=== PATIENT | male | born 1960 | race Caucasian/White ===

== ENCOUNTER 2016-06-18 14:01 | Emergency (ER) | payer SELFPAY ==
--- NOTE | 2016-06-18 15:06 | EDM.PDOC ---
ED HPI Trauma - General Chief Complaint: Lower Extremity Injury/Pain Stated Complaint: LT SIDE HURTS Time Seen by Provider: 06/18/16 14:20 - History of Present Illness INITIAL COMMENTS - FREE TEXT/NARRATIVE: HISTORY AND PHYSICAL: History of present illness: Patient 56-year-old male presents status post recent injury which was driving a tractor and fell on left side he sustained injuries to his left elbow left ribs and left knee these are associated with some minor abrasions he denies any head or neck pain or trauma the measurements of breath abdominal pain or trauma or other concern Review of systems: As per history of present illness and below otherwise all systems reviewed and negative. Past medical history: As per history of present illness and as reviewed below otherwise noncontributory. Surgical history: As per history of present illness and as reviewed below otherwise noncontributory. Social history: No reported history of drug or alcohol abuse. Family history: As per history of present illness and as reviewed below otherwise noncontributory. Physical exam: HEENT: Atraumatic, normocephalic, pupils reactive, negative for conjunctival pallor or scleral icterus, mucous membranes moist, throat clear, neck supple, nontender, trachea midline. Lungs: Clear to auscultation, breath sounds equal bilaterally, chest mild tenderness to palpation in the anterior axillary line at the left ribs no crepitation or point tenderness Heart: S1S2, regular, negative for clicks, rubs, or JVD. Abdomen: Soft, nondistended, nontender. Negative for masses or hepatosplenomegaly. Negative for costovertebral tenderness. Pelvis: Stable nontender. Genitourinary: Deferred. Rectal: Deferred. Extremities: Patient noted to have abrasion to his left elbow and left knee he is also known to small hematoma both in the region of the olecranon and left knee there is no crepitus point tenderness CMS neurovascular unremarkable.. Neuro: Awake, alert, oriented. Cranial nerves II through XII unremarkable. Cerebellum unremarkable. Motor and sensory unremarkable throughout. Exam nonfocal. Diagnostics: X-ray chest x-ray left knee x-ray left elbow Therapeutics: To be determined Impression: #1 observation status post accident #1 multiple abrasions/contusions Definitive disposition and diagnosis as appropriate pending reevaluation and review of above. Allergies/ADRs: Allergies No Known Allergies Allergy (Verified 06/18/16 14:27) Home Medications: Ambulatory Orders Omeprazole [Prilosec] 20 mg PO DAILY 07/20/13 [Confirmed 06/18/16] Past Medical History HEENT History: Reports: None Cardiovascular History: Reports: None Respiratory History: Reports: None Gastrointestinal History: Reports: None Genitourinary History: Reports: None Musculoskeletal History: Reports: None Neurological History: Reports: None Psychiatric History: Reports: None Endocrine/Metabolic History: Reports: None Hematologic History: Reports: None Immunologic History: Reports: None Oncologic (Cancer) History: Reports: None Dermatologic History: Reports: None - Infectious Disease History Infectious Disease History: Reports: None - Past Surgical History Musculoskeletal Surgical History: Reports: Shoulder surgery Social & Family History - Family History Family Medical History: Noncontributory - Tobacco Use Smoking Status *Q: Never Smoker Second Hand Smoke Exposure: No - Caffeine Use Caffeine Use: Reports: Coffee - Alcohol Use Days Per Week of Alcohol Use: 1 Number of Drinks Per Day: 3 Total Drinks Per Week: 3 - Recreational Drug Use Recreational Drug Use: No Review of Systems - Review of Systems Review Of Systems: ROS reveals no pertinent complaints other than HPI. Trauma Exam - Physical Exam Exam: See Below (See dictated) Course - Vital Signs Last Recorded V/S: Last Vital Signs Temp 36.6 C 06/18/16 14:28 Pulse 69 06/18/16 14:28 Resp 16 06/18/16 14:28 BP 143/73 H 06/18/16 14:28 Pulse Ox 98 06/18/16 14:28 Departure - Departure Time of Disposition: 16:22 Disposition: Home, Self-Care 01 Condition: good Clinical Impression: Elbow injury, Rib injury, Abrasion, Knee injury Forms: ED Department Discharge Additional Instructions: The following information is given to patients seen in the emergency department who are being discharged to home. This information is to outline your options for follow-up care. We provide all patients seen in our emergency department with a follow-up referral. The need for follow-up, as well as the timing and circumstances, are variable depending upon the specifics of your emergency department visit. If you don't have a primary care physician on staff, we will provide you with a referral. We always advise you to contact your personal physician following an emergency department visit to inform them of the circumstance of the visit and for follow-up with them and/or the need for any referrals to a consulting specialist. The emergency department will also refer you to a specialist when appropriate. This referral assures that you have the opportunity for followup care with a specialist. All of these measure are taken in an effort to provide you with optimal care, which includes your followup. Under all circumstances we always encourage you to contact your private physician who remains a resource for coordinating your care. When calling for followup care, please make the office aware that this follow-up is from your recent emergency room visit. If for any reason you are refused follow-up, please contact the [facility] emergency department at and asked to speak to the emergency department charge nurse. Motrin/Tylenol as directed follow up primary medical doctor one to 2 days return as needed as discussed
--- NOTE | 2016-06-18 15:39 | CR ---
EXAMINATION: Two-view chest (PA and Lateral views). HISTORY: Shortness of breath. FINDINGS: The trachea is midline. The cardiomediastinal silhouette is within normal limits. No pulmonary infil trates, effusions or pneumothorax. Trace left basilar atelectasis. Osseous structures appear unremarkable. IMPRESSION: No acute cardiopulmonary process.
--- NOTE | 2016-06-18 15:40 | CR ---
EXAMINATION: Left knee HISTORY: Pain COMPARISON: None TECHNIQUE: 3 views FINDINGS/IMPRESSION: There is no acute osseous abnormality, dislocation, or fracture identified. Bon e mineralization and joint spaces appear preserved. Mild prepatellar soft tissue thickening without an underlying joint effusion.
--- NOTE | 2016-06-18 15:45 | CR ---
EXAMINATION: Left forearm HISTORY: Pain COMPARISON: None TECHNIQUE: 2 views FINDINGS/IMPRESSION: There is no acute osseous abnormality, joint effusion, dislocation, or fracture identified. Osteophyte formation and degenerative changes are noted at the radiocarpal and radiocap itellar joints. There is increased angulation at the radial neck, possibly secondary to an old injur y.
[2016-06-18 16:42] VITALS: BP 126/71
== END 2016-06-18 16:39 | disposition home or self-care (01) ==
LOC: MW.ED 14:01
DX: S50.02XA Contusion of left elbow, initial encounter (principal); S80.02XA Contusion of left knee, initial encounter; S29.9XXA Unspecified injury of thorax, initial encounter; W19.XXXA Unspecified fall, initial encounter
CPT/HCPCS: 71020; 71020-26; 73090-26-LT; 73090-LT; 73562-26-LT; 73562-LT; 99282; 99283